=== PATIENT | female | born 1995 | race Caucasian/White ===

== ENCOUNTER 2018-09-18 22:21 | Emergency (ER) | payer OTHER ==
[~2018-09-18] VITALS: Ht 170.2 cm; Wt 59.0 kg
[2018-09-18 22:53] VITALS: BP 125/86
== END 2018-09-18 23:50 | disposition home or self-care (01) ==
LOC: ER 22:24
DX: S61.011A Laceration without foreign body of right thumb without damage to nail, initial encounter (principal); W26.0XXA Contact with knife, initial encounter; Y93.G1 Activity, food preparation and clean up; Y92.89 Other specified places as the place of occurrence of the external cause; Y99.8 Other external cause status
CPT/HCPCS: 99283; A6403